=== PATIENT | male | born 1955 | race Caucasian/White ===

== ENCOUNTER 2023-03-16 19:58 | Emergency (ER) | payer MEDICARE, BC ==
[~2023-03-16] VITALS: Ht 180 cm; Wt 108.0 kg
[2023-03-16] MEDS ORDERED: AMIODARONE 150 MG/3 ML (CORDARONE) VIAL IV ONE (20:00)
[2023-03-16] MEDS ORDERED: fentaNYL INJ 100 MCG/2 ML AMP IV ONE (20:00)
[2023-03-16] MEDS ORDERED: SUCCINYLCHOLINE INJ 20 MG/1 ML 10 ML VIAL INJ ONE (20:00)
[2023-03-16] MEDS ORDERED: ETOMIDATE IV SOLN 20 MG/10 ML VIAL IV ONE (20:00)
[2023-03-16] MEDS ORDERED: EPINEPHrine 0.1 MG/ML 10 ML (HOSPIRA) SYR IJ ONE (20:00)
[2023-03-16] MEDS ORDERED: SODIUM BICARB 8.4% 50 MEQ/50 ML (ABBOTT) SYR INJ ONE (20:00)
--- NOTE | 2023-03-16 21:11 | ED CPR ---
HPI-CPR General Chief Complaint: Code Blue Stated Complaint: CODE Nursing Triage Note: PT TO ROOM BY EMS. EMS REPORTS PT WAS UNRESPONSIVE AND NOT BREATHING AT SCENE. EMS REPORTS PT BECAME ALERT AT SOME POINT AND COMPLAINED OF CHEST PAIN. EMS REPORTS GIVING PT 50 FENTANYL AND 324 ASA ORALLY. EMS REPORTS PT LOST PULSE EN ROUTE AND CPR WAS STARTED. IGEL IN PLACE ON ARRIVAL. FLUIDS ON ARRIVAL. EMS REPORTS GIVING ONE ROUND OF EPI AND ONE SHOCK Source of Information: EMS, Family, Old Records Exam Limitations: Physical Impairments History of Present Illness Date Seen by Provider: March 16, 2023 Time Seen by Provider: 20:02 Initial Comments This 67-year-old gentleman arrives to the emergency room via EMS status post CODE BLUE with resuscitation. He had an unresponsive episode at a local restaurant. He recovered from this episode, and he was alert and talking upon EMS arrival to the restaurant. However, in route he became unresponsive again. He had ventricular tachycardia on the monitor. He received 1 defibrillator shock. Patient at one point did lose pulse and received CPR. He also received 1 dose of epinephrine. I-gel was placed to assist with respirations. Upon arrival he is unresponsive with pulse reported by EMS. However, upon moving to the trauma bay bed, he is noted to be pulseless. CPR was resumed. He was in PEA. Patient is known to have cardiac disease with a pacemaker and defibrillator. eventually arrived to the emergency room and provided further history. EMS reports even when patient was alert and talking he was cyanotic in appearance. EKG obtained in the field was suggestive of STEMI. Allergies and Home Medications Patient Home Medication List Home Medication List Reviewed: Yes Review of Systems Review of Systems Constitutional: see HPI Respiratory: See HPI Cardiovascular: See HPI Gastrointestinal: No Symptoms Reported Genitourinary: No Symptoms Reported Musculoskeletal: no symptoms reported Skin: see HPI Psychiatric/Neurological: See HPI Endocrine: No Symptoms Reported Past [id number] Hx Past Medical History Surgeries: Yes Defibrillator, Pacemaker Respiratory: No Cardiac: Yes (Heart failure) Coronary Artery Disease, Hypertension Endocrine: Yes Diabetes, Non-Insulin dep Physical Exam Vital Signs Vital Signs - First Documented 03/16/23 20:02 Pulse 120 Capillary Refill : Height, Weight, BMI Height: '" Weight: lbs. oz. kg; 33.00 BMI Method: General Appearance: WD/WN, Other (Unresponsive) HEENT: Normal ENT Inspection Neck: Normal Inspection Respiratory: Other (No respiratory effort, i-gel in place) Cardiovascular: Other (No pulse, regular tachycardia resembling V. tach on monitor, PEA) Gastrointestinal: Soft; No Distended Extremity: Normal Inspection Neurologic/Psychiatric: Other (Unresponsive) Skin: Warm/Dry Progress/Results/Core Measures Results/Orders Lab Results Laboratory Tests Test 03/16/23 20:11 Range/Units Glucometer 111 H 70-110 MG/DL Vital Signs/I&O 03/16/23 20:02 Pulse 120 B/P (MAP) 03/17/23 00:00 Intake Total 800 ml Balance 800 ml Initial ECG Impression Date: March 16, 2023 Initial ECG Impression Time: 19:44 Initial ECG Rate: 115 Initial ECG Rhythm: S.Tach Comment Sinus tachycardia with ST changes in multiple leads, especially V1 through V3, suggestive of STEMI. Short WI interval of 107 ms. Right axis deviation. Critical Care Note Critical Care Start Time: 20:02 Stop Time: 20:34 Total Time (minutes) 32 Time of : 20:34 Progress CPR was promptly resumed when patient was moved to trauma bay bed and noted to be pulseless. Rhythm check at 2003 demonstrated PEA. CPR was continued and a Arley device was applied. Epinephrine 1 mg was administered at 2007. Pulse check was still PEA. CPR was resumed. Dr. Torres was consulted during initial phases of resuscitation. Amiodarone 300 mg was administered at 2008. Pulse check at 2010 revealed PEA and CPR was continued. Epinephrine 1 mg was administered. Pulse check at 2013 again revealed PEA and CPR was continued. Another dose of epinephrine 1 mg was administered. Secure airway was needed. In preparation of intubation etomidate 20 mg, succinylcholine 100 mg, and fentanyl 50 mg were drawn and prepared. Pulse check at 2017 revealed faint carotid pulse. Monitor demonstrated V. tach. No shock was administered as pulse was lost before shock could be administered. CPR was resumed. Epinephrine 1 mg was administered. Induction medications were given at 2018. Pulse check at 2020 revealed brief right carotid pulse. However, pulse was lost again before shock could be administered. Patient again appeared to be in V. tach during detectable pulse. CPR was resumed at 2021. CPR was briefly stopped to perform intubation. Patient was intubated by this provider with a 7.5 ET tube using the glide scope. Position was confirmed by color change capnography and auscultation of bilateral equal breath sounds. Epinephrine 1 mg was administered at 2021. CPR was ongoing. Another dose of epinephrine was administered at 2024. During epi administration and a brief pulse was detected. A synchronized defibrillation was performed at 200 J. CPR was continued. There appeared to be a brief change in morphology of rhythm but this gave way to the prior rhythm with appearance of V. tach. Epinephrine was administered at 2027. Pulse check at 2028 revealed no pulse with PEA. CPR was resumed. An amp of sodium bicarb was administered at 2029. Epinephrine was again administered at 2030. Pulse check at that time revealed a brief pulse that was lost in about 10 seconds. CPR was continued. After consultation with patient's , CPR was stopped at 2032. A faint pulse was briefly palpable but was lost within seconds. Pulse check again at 2033 revealed no pulse. Time of was called at 2033. 32 minutes of critical care was provided. Patient's was present in the room and part of the decision-making process when code was called. End- tidal capnography was monitored during the resuscitation efforts and was noted to be trending down throughout. Dr. Torres, highway maintenance worker contracts analyst, was also present in the final minutes of resuscitation efforts and agreed that further attempts were futile. Departure Impression Primary Impression: STEMI (ST elevation myocardial infarction) Qualified Codes: I21.3 - ST elevation (STEMI) myocardial infarction of unspecified site Additional Impressions: V tach Cardiac arrest Disposition: 20 Condition: CARLI GARCIA MD March 16, 2023 21:11
== END 2023-03-17 04:08 | disposition expired ==
LOC: ER 19:59
DX: I21.3 ST elevation (STEMI) myocardial infarction of unspecified site (principal); I46.9 Cardiac arrest, cause unspecified; I47.20 Ventricular tachycardia, unspecified
CPT/HCPCS: 82947